=== PATIENT | male | born 1990 | race Native Hawaiian/Other Pacific Islander ===

== ENCOUNTER 2021-07-01 22:08 | Emergency (ER) | payer OTHER ==
[~2021-07-01] VITALS: Ht 172.7 cm; Wt 107.5 kg
[2021-07-01 22:26] VITALS: TEMP 100.2
[2021-07-01 23:15] LABS: PLATELET COUNT 182 K/uL (142-355)
[2021-07-01 23:34] LABS: POTASSIUM 4.2 mmol/L (3.6-5.2)
[2021-07-02 02:09] VITALS: BP 114/61
== END 2021-07-02 02:20 | disposition home or self-care (01) ==
LOC: ED 22:08
PROVIDERS: Emergency Medicine
DX: K52.89 Other specified noninfective gastroenteritis and colitis (principal)
CPT/HCPCS: 36415; 80053; 85027; 96360; 96375; 99284; J2405